=== PATIENT | female | born 1995 | race African-American/Black ===

== ENCOUNTER 2024-05-02 07:24 | Inpatient (IN) | payer BC ==
[2024-05-02 08:42] LABS: BASO % 0.3 % (0-2.0); EOS % 1.3 % (0-4.5); HEMATOCRIT 30.7 % (32.4-45.2); HEMOGLOBIN 10.3 GM/dL (10.7-15.3); LYMPH % 26.5 % (8-40); MCH 26.5 pg (25.7-33.7); MCHC 33.4 g/dl (32.0-36.0); MEAN CELL VOLUME 79.3 fl (80-96); MEAN PLT VOLUME 9.3 fl (7.5-11.1); MONO % 10.4 % (3.8-10.2); NEUT % 61.5 % (42.8-82.8); PLATELET COUNT 150 10^3/uL (134-434); RBC 3.88 M/mm3 (3.60-5.2); RDW 14.2 % (11.6-15.6); WHITE BLOOD COUNT 4.4 K/mm3 (4.0-10.0)
[2024-05-02 08:55] VITALS: BMI 28.3
[2024-05-02 09:00] LABS: POTASSIUM 3.6 mmol/L (3.5-5.1)
[2024-05-02 09:01] LABS: CALCIUM 8.9 mg/dL (8.5-10.1)
[2024-05-02 09:02] LABS: BLOOD UREA NITROGEN 4.8 mg/dL (7-18)
[2024-05-02 09:05] LABS: CREATININE 0.5 mg/dL (0.55-1.3)
[2024-05-02 09:06] LABS: INR 1.03 (0.83-1.09); PROTHROMBIN TIME (PATIENT) 11.2 SEC (9.7-13.0)
[2024-05-02 09:09] LABS: ACTIVATED PTT 25.1 SECONDS (25.2-36.5)
[2024-05-02] MEDS ORDERED: OXYTOCIN 30 UNITS in 0.9% NS 30 UNIT/500 ML INFUS.BAG IVPB ONE (09:27)
[2024-05-02] MEDS: ELECTROLYTE-148 SOLN 1,000 ML IV SCH (09:29)
[2024-05-02] MEDS: OXYTOCIN 30 UNITS in 0.9% NS 30 UNIT/500 ML INFUS.BAG IVPB SCH (09:30)
[2024-05-02] MEDS ORDERED: BUTORPHANOL TARTRATE 2 MG/ML VIAL ONE (11:22)
[2024-05-02] MEDS ORDERED: PROMETHAZINE HCL 25 MG/1 ML VIAL ONE (11:22)
[2024-05-02 11:24] LABS: SYPHILIS W/ RPR CONF NON-REACTIVE (NONREACTIVE)
[2024-05-02] MEDS: PROMETHAZINE HCL 25 MG/1 ML VIAL IVPB ONE (11:28)
[2024-05-02] MEDS: BUTORPHANOL TARTRATE 1 MG/ML VIAL IVPB ONE (11:30)
[2024-05-02 11:54] LABS: HIV INTERPRETATION NEGATIVE (NEGATIVE)
[2024-05-02] MEDS ORDERED: OXYTOCIN 20 UNITS in 0.9% NS 20 UNIT/1,000 ML INFUS.BAG IV ONE (14:56)
[2024-05-02] MEDS ORDERED: METHYLERGONOVINE MALEATE 0.2 MG/1 ML AMP IM PRN (15:23)
[2024-05-02] MEDS ORDERED: ACETAMINOPHEN 325 MG TABLET (FP) PO PRN (15:23)
[2024-05-02] MEDS ORDERED: BENZOCAINE 20% 57 GM BOTTLE TP PRN (15:23)
[2024-05-02] MEDS ORDERED: BISACODYL 10 MG SUPP.RECT RC PRN (15:23)
[2024-05-02] MEDS ORDERED: BENZOCAINE 28 GM HEMORRHOIDAL OINTMENT TP PRN (15:23)
[2024-05-02] MEDS ORDERED: WITCH HAZEL 50% (TUCKS) 40 PAD/JAR PAD TP PRN (15:23)
[2024-05-02] MEDS: OXYTOCIN 20 UNITS in 0.9% NS 20 UNIT/1,000 ML INFUS.BAG IV SCH (15:30)
[2024-05-02] MEDS ORDERED: IBUPROFEN 600 MG TABLET (FP) PO ONE (16:55)
[2024-05-02] MEDS: IBUPROFEN 600 MG TABLET (FP) PO PRN (16:58)
[2024-05-02] MEDS: oxyCODONE HCL 5 MG TABLET PO PRN (20:21)
[2024-05-03 06:54] LABS: BASO % 0.3 % (0-2.0); EOS % 1.2 % (0-4.5); HEMATOCRIT 30.9 % (32.4-45.2); HEMOGLOBIN 10.3 GM/dL (10.7-15.3); LYMPH % 23.9 % (8-40); MCH 26.8 pg (25.7-33.7); MCHC 33.3 g/dl (32.0-36.0); MEAN CELL VOLUME 80.5 fl (80-96); MEAN PLT VOLUME 9.7 fl (7.5-11.1); MONO % 10.4 % (3.8-10.2); NEUT % 64.2 % (42.8-82.8); PLATELET COUNT 149 10^3/uL (134-434); RBC 3.83 M/mm3 (3.60-5.2); RDW 13.8 % (11.6-15.6); WHITE BLOOD COUNT 8.2 K/mm3 (4.0-10.0)
[2024-05-03] MEDS: FERROUS SO4 325 MG TABLET (FP) PO SCH (10:59)
[2024-05-03] MEDS: PRENATAL VITAMINS W/ FOLIC ACID TABLET (FP) PO SCH (10:59)
[2024-05-03 22:51] VITALS: RESP 18; TEMP 97.9
[2024-05-03] MEDS: SENNOSIDES/DOCUSATE COMBO (SENNA PLUS) TABLET (UD) PO PRN (23:08)
[2024-05-04 11:03] VITALS: BP 115/77; PULSE 57
== END 2024-05-04 13:15 | disposition home or self-care (01) | DRG 807 ==
LOC: JLDR 07:24 → J3W 17:42
PROVIDERS: ADMIT Obstetrics & Gynecology; ATTEND Obstetrics & Gynecology
PROC: 10E0XZZ Delivery of Products of Conception, External Approach (ICD-10-PCS; principal; 2024-05-02)
DX: O80 Encounter for full-term uncomplicated delivery (principal); Z37.0 Single live birth; Z3A.39 39 weeks gestation of pregnancy
CPT/HCPCS: 36415; 59409; 80048; 85025; 85610; 85730; 86780; 86850; 86900; 86901; 87389